=== PATIENT | male | born 1945 | race Two or more races ===

== ENCOUNTER → 2017-01-16 | Outpatient (CLI) | payer MEDICARE, OTHER ==
[2017-01-16 15:26] LABS: CH 31.7; CHCM 36.3; HCT 44.9 % (39.0-53.0); HDW 2.84; HGB 15.9 gm/dL (13.0-17.5); MCH 31.1 pg (25.0-35.0); MCHC 35.5 g/dL (31.0-37.0); MCV 87.7 fL (80.0-100.0); Mean Platelet Volume 7.4; RBC 5.12 m/uL (4.30-5.90); RDW 13.9 % (11.5-15.5); WBC 8.6 k/uL (3.8-10.6)
[2017-01-16 15:37] LABS: Anion Gap 12 mmol/L; Blood Urea Nitrogen 8 mg/dL (9-20); Carbon Dioxide 25 mmol/L (22-30); Chloride 103 mmol/L (98-107); Non-African American GFR(MDRD) >60 (>60 ml/min/1.73 sqM); Potassium 4.2 mmol/L (3.5-5.1); Sodium 140 mmol/L (137-145)
== END | disposition home or self-care (01) ==
LOC: LABPAT 15:16
PROVIDERS: ATTEND Internal Medicine Interventional Cardiology
DX: Z01.812 Encounter for preprocedural laboratory examination (principal); R07.9 Chest pain, unspecified
CPT/HCPCS: 36415; 80051; 82565; 84520; 85027

== ENCOUNTER → 2017-03-13 | Outpatient (CLI) | payer MEDICARE, OTHER ==
[2017-03-13 10:41] LABS: CH 31.4; CHCM 34.5; HDW 2.91; MCH 31.2 pg (25.0-35.0); MCHC 34.1 g/dL (31.0-37.0); MCV 91.6 fL (80.0-100.0); Mean Platelet Volume 7.4; RBC 5.14 m/uL (4.30-5.90); RDW 13.4 % (11.5-15.5); WBC 7.6 k/uL (3.8-10.6)
[2017-03-13 11:20] LABS: Anion Gap 10 mmol/L; Blood Urea Nitrogen 14 mg/dL (9-20); Carbon Dioxide 26 mmol/L (22-30); Chloride 104 mmol/L (98-107); Non-African American GFR(MDRD) >60 (>60 ml/min/1.73 sqM); Potassium 4.7 mmol/L (3.5-5.1); Sodium 140 mmol/L (137-145)
== END | disposition home or self-care (01) ==
LOC: LABPAT 10:18
PROVIDERS: ATTEND Internal Medicine Interventional Cardiology
DX: Z01.812 Encounter for preprocedural laboratory examination (principal); R94.30 Abnormal result of cardiovascular function study, unspecified
CPT/HCPCS: 36415; 80051; 82565; 84520; 85027

== ENCOUNTER → 2017-04-07 | Day surgery (SDC) | payer MEDICARE, OTHER ==
[2017-04-04 09:16] VITALS: BMI 30.5
[~2017-04-07] MED LIST: ALPRAZolam 0.25 MG TAB PO PRN; ASPIRIN 325 MG TAB PO ONE; HEPARIN SODIUM 1,000 UN/ML (10ML VL) IV ONE; HEPARIN SODIUM 1,000 UN/ML (10ML VL) ONE; IOHEXOL 350 MG/ML 125ML BOTTLE INJ ONE; LIDOCAINE 2% INJ 20 MG/ML (20 ML MDV) ONE; LIDOCAINE 2% INJ 20 MG/ML SQ ONE; MIDAZOLAM 2 MG/2 ML VIAL IVP ONE; MIDAZOLAM 2 MG/2 ML VIAL ONE; NITROGLYCERIN SL TABS 0.4 MG TAB SUBLINGUAL PRN; RX INFO: IV CONTRAST WAS GIVEN 1 EACH MISC MISCELLANE PRN; SODIUM CHLORIDE 0.9% 1,000 ML IV SCH; SODIUM CHLORIDE 0.9% 1,000 ML in EMPTY BAG 1 BAG IV ONE; VERAPAMIL 2.5 MG/ML 2 ML AMP ONE; VERAPAMIL SYRINGE (5 MG/10 ML) INTRAARTER ONE; diphenhydrAMINE 50 MG/ML 1 ML VIAL IVP ONE; diphenhydrAMINE 50 MG/ML 1 ML VIAL ONE
[2017-04-07 11:36] VITALS: TEMP 98
--- NOTE | 2017-04-07 11:40 | LTR ---
Date: April 07, 2017 Phong Buckley MD Re: Mango Cooknewtontorrey Dear Dr. Buckley: Mr. Mango Hansen underwent a heart catheterization today and that showed severe disease involving the LAD in the proximal portion as well as mid to distal portion. He will be scheduled to undergo a balloon angioplasty and stenting of the LAD. I want to thank you for allowing me to participate in his care. Sincerely, Mata Swanson MD MMVITALY / LORN: [id number] /
--- NOTE | 2017-04-07 11:49 | CC ---
CARDIAC CATHETERIZATION REPORT DATE OF SERVICE: 04/07/2017 PERFORMING PHYSICIAN: Mata Swanson MD, dishwashing machine operator. PROCEDURE PERFORMED: 1. Selective right and left coronary angiogram. 2. Left heart catheterization. 3. Left ventriculography. INDICATION: This is a pleasant 71-year-old gentleman with known hypertension and dyslipidemia who underwent recently a myocardial perfusion imaging stress test as well as stress echocardiogram and both showed anterior ischemia. In view of that, he was scheduled to undergo a heart catheterization. APPROACH: Right radial artery. COMPLICATION: None. LEVEL OF SEDATION: Moderate with sedation length of 23 minutes. PROCEDURE DESCRIPTION: After obtaining an informed consent, the patient was brought to the cardiac dental laboratory technician apprentice. The right radial artery was cannulated using micropuncture technique, the micropuncture wire passed easily. Then I placed a 6-[place] sheath in the right radial artery. Subsequently I gave the patient 2 mg of verapamil IA and 8000 units of heparin IV. After that, I did selective right and left coronary angiogram using JR4 and JL3.5 catheters. After that, I did left heart catheterization and left ventriculography using 5-[place] pigtail catheter. The procedure was completed without any complication. SELECTIVE CORONARY ANGIOGRAM: 1. The right coronary artery is a large caliber vessel and it is a nondominant vessel. It has intermediate lesion in the proximal portion. 2. The left main is angiographically normal. It bifurcates into left circumflex, ramus intermedius, and left anterior descending artery. 3. The left circumflex is a large caliber vessel and is a dominant vessel. The proximal circ appeared to be angiographically normal. The mid circ has mild luminal irregularity only. It gives rise into a large OM branch which appeared to have mild disease only and the circ distally is angiographically normal and bifurcates into PDA and PLV branches, both are angiographically normal. 4. The ramus intermedius is a moderate caliber vessel with intermediate disease in the proximal portion about 60%. 5. The left anterior descending artery; the proximal LAD appeared to have eccentric and calcified lesion, seems to be in the range of 70%. This is by the bifurcation off a small diagonal branch which appeared to have severe disease in the proximal portion. The mid LAD has another lesion, appeared to be in the range of 60%. The mid to distal LAD has a tight lesion seems to be in the range of 70%. HEMODYNAMIC: The left ventricular end-diastolic pressure was 12 mmHg. No gradient was identified across aortic valve. LEFT VENTRICULOGRAPHY: Left ventriculography was performed in the ALEMAN projection and using a power injection. The left ventricular systolic function is normal with EF of 50% with mild anterior wall hypokinesia. CONCLUSION: 1. Medium caliber, nondominant right coronary artery with mild disease only. 2. Normal left main coronary artery. 3. Mild nonobstructive disease involving the left circumflex. 4. Intermediate disease involving the ramus intermedius. 5. Severe disease involving the proximal and mid to distal LAD with calcified lesions. 6. Low normal left ventricular systolic function with ejection fraction of 50% and mild anterior wall hypokinesia. POSTPROCEDURE MANAGEMENT: The patient to be scheduled to undergo an atherectomy and balloon angioplasty and stenting of the LAD. MMODL / IJN: [id number] /
[2017-04-07 14:39] LABS: Magnesium 1.9 mg/dL (1.6-2.3); Potassium 4.2 mmol/L (3.5-5.1)
[2017-04-07 14:49] VITALS: BP 114/56; RESP 16
[2017-04-07 16:08] VITALS: PULSE 43
== END ==
LOC: CATHCVL 07:58
PROVIDERS: ATTEND Internal Medicine Interventional Cardiology
DX: I25.110 Atherosclerotic heart disease of native coronary artery with unstable angina pectoris (principal); I25.84 Coronary atherosclerosis due to calcified coronary lesion; I10 Essential (primary) hypertension; E78.5 Hyperlipidemia, unspecified; J45.909 Unspecified asthma, uncomplicated; Z79.82 Long term (current) use of aspirin; Z79.899 Other long term (current) drug therapy
CPT/HCPCS: 93458; 83735; 84132; 99152; 99153; C1894; J2001; J2250; J1200; J1644; Q9967

== ENCOUNTER → 2017-04-13 | Outpatient (CLI) | payer MEDICARE, OTHER | END | disposition home or self-care (01) | LOC: CPPFTMAIN 13:10 | PROVIDERS: ATTEND Internal Medicine Pulmonary Disease | DX: R06.02 Shortness of breath (principal) | CPT/HCPCS: 94060; 94726; 94729 ==

== ENCOUNTER → 2017-10-16 | Outpatient (CLI) | payer MEDICARE, OTHER ==
--- NOTE | 2017-10-16 09:03 | US ---
EXAMINATION TYPE: US gallbladder DATE OF EXAM: 10/16/2017 COMPARISON: NONE CLINICAL HISTORY: 72-year-old male R74.8 elevated liver enzymes. TECHNIQUE: Multiple sonographic images of the right upper quadrant are obtained. FINDINGS: Liver Length: 16.8 cm Gallbladder Wall: 0.2 cm CBD: 0.6 cm Right Kidney: 10.8 x 5.1 x 4.8 cm Pancreas: Suboptimal visualization of the pancreatic tail secondary to shadowing from bowel gas. Liver: Upper limits of normal in size but with normal homogeneous echotexture and no focal lesion. Gallbladder: No abnormal gallbladder distention, wall thickening, pericholecystic fluid, or shadowin g calculi. Evidence for sonographic Guzmán's sign: no CBD: Within normal limits for patient's age. Right Kidney: 1.2 x 0.9 x 0.9cm superior pole cortical cyst. No hydronephrosis. IMPRESSION: 1. Liver measures at the upper limits of normal in size but otherwise appears sonographically unremar kable. 2. Incidental small 1.2 cm cortical cyst in the right kidney.
== END | disposition home or self-care (01) ==
LOC: RADUSWWP 07:32
PROVIDERS: ATTEND Family Medicine
DX: R74.8 Abnormal levels of other serum enzymes (principal)
CPT/HCPCS: 76705

== ENCOUNTER → 2018-07-12 | Outpatient (CLI) | payer MEDICARE, OTHER ==
[2018-07-12 15:52] LABS: LDL Cholesterol,Calculated 50.8 mg/dL (0.0-131.0); VLDL Calculation 35.2 mg/dL (5.00-40.00)
== END | disposition home or self-care (01) ==
LOC: LABWHC1 07:54
PROVIDERS: ATTEND Nurse Practitioner Adult Health
DX: E78.5 Hyperlipidemia, unspecified (principal)
CPT/HCPCS: 36415; 80061

== ENCOUNTER → 2019-01-19 | Outpatient (CLI) | payer MEDICARE, OTHER ==
[2019-01-19 17:56] LABS: LDL Cholesterol,Calculated 39.6 mg/dL (0.0-131.0); VLDL Calculation 16.4 mg/dL (5.00-40.00)
== END | disposition home or self-care (01) ==
LOC: LABWHC1 10:28
PROVIDERS: ATTEND Internal Medicine Interventional Cardiology
DX: E78.2 Mixed hyperlipidemia (principal)
CPT/HCPCS: 36415; 80061; 84450; 84460

== ENCOUNTER 2019-02-05 06:53 | Day surgery (SDC) | payer MEDICARE, OTHER ==
[~2019-02-05 06:53] MED LIST changes: -ALPRAZolam 0.25 MG TAB PO PRN; -ASPIRIN 325 MG TAB PO ONE; -HEPARIN SODIUM 1,000 UN/ML (10ML VL) IV ONE; -HEPARIN SODIUM 1,000 UN/ML (10ML VL) ONE; -IOHEXOL 350 MG/ML 125ML BOTTLE INJ ONE; +LACTATED RINGERS 1,000 ML IV SCH; -LIDOCAINE 2% INJ 20 MG/ML (20 ML MDV) ONE; -LIDOCAINE 2% INJ 20 MG/ML SQ ONE; -MIDAZOLAM 2 MG/2 ML VIAL IVP ONE; -MIDAZOLAM 2 MG/2 ML VIAL ONE; -NITROGLYCERIN SL TABS 0.4 MG TAB SUBLINGUAL PRN; -RX INFO: IV CONTRAST WAS GIVEN 1 EACH MISC MISCELLANE PRN; -SODIUM CHLORIDE 0.9% 1,000 ML IV SCH; -SODIUM CHLORIDE 0.9% 1,000 ML in EMPTY BAG 1 BAG IV ONE; -VERAPAMIL 2.5 MG/ML 2 ML AMP ONE; -VERAPAMIL SYRINGE (5 MG/10 ML) INTRAARTER ONE; -diphenhydrAMINE 50 MG/ML 1 ML VIAL IVP ONE; -diphenhydrAMINE 50 MG/ML 1 ML VIAL ONE
[2019-02-05] MEDS ORDERED: LACTATED RINGERS 1,000 ML IV ONE (07:00)
[2019-02-05 07:14] VITALS: TEMP 97.6
[2019-02-05 07:20] LABS: Glucose,Whole Blood 138 mg/dL (75-99)
[2019-02-05] MEDS ORDERED: LIDOCAINE 1% INJ 10MG/ML (20 ML MDV) ONE (07:39)
[2019-02-05] MEDS ORDERED: PROPOFOL 10 MG/ML 20 ML VIAL IV ONE (07:39)
[2019-02-05] MEDS ORDERED: ePHEDrine SULFATE/0.9% NACL/PF 50 MG/5 ML SYRINGE IV ONE (07:39)
[2019-02-05] MEDS ORDERED: GLYCOPYRROLATE 0.2 MG/ML 2 ML VIAL ONE (07:39)
--- NOTE | 2019-02-05 08:01 | P.GSHP ---
History of Present Illness H&P Date: 02/05/19 Chief Complaint: Screening colonoscopy This is a 73-year-old male referred from Dr. Buckley. Patient presents today for screening colonoscopy. Past Medical History Past Medical History: Asthma, Diabetes Mellitus, Hyperlipidemia, Hypertension Additional Past Medical History / Comment(s): Allergies, diet controlled Diabetes. History of Any Multi-Drug Resistant Organisms: None Reported Additional Past Surgical History / Comment(s): Bilateral cataract surgery. Past Anesthesia/Blood Transfusion Reactions: No Reported Reaction Past Psychological History: No Psychological Hx Reported Smoking Status: Never smoker Past Alcohol Use History: None Reported Past Drug Use History: None Reported - Past Family History Mother Family Medical History: No Reported History Medications and Allergies Home Medications Medication Instructions Recorded Confirmed Type Albuterol Inhaler [Ventolin Hfa 1 - 2 puff INHALATION Q6H PRN 04/04/17 02/05/19 History Inhaler] Aspirin 81 mg PO DAILY 04/04/17 02/04/19 History Cholecalciferol (Vitamin D3) 4,000 unit PO DAILY 04/04/17 02/04/19 History [Vitamin D3] Fluticasone/Vilanterol [Breo 1 inhalation PO DAILY PRN 04/04/17 02/05/19 History Ellipta 100-25 Mcg Inhaler] Atorvastatin [Lipitor] 80 mg PO HS 02/04/19 02/05/19 History Benazepril [Lotensin] 10 mg PO BID 02/04/19 02/05/19 History Allergies Allergy/AdvReac Type Severity Reaction Status Date / Time No Known Allergies Allergy Verified 02/05/19 07:14 Surgical - Exam Vital Signs Temp Pulse Resp BP Pulse Ox 97.6 F 62 14 142/65 97 02/05/19 07:11 02/05/19 07:11 02/05/19 07:11 02/05/19 07:11 02/05/19 07:11 - General well developed, well nourished, no distress - Eyes PERRL - ENT normal pinna - Neck no masses - Respiratory normal expansion - Cardiovascular Rhythm: regular - Abdomen Abdomen: soft, non tender Results - Labs Abnormal Lab Results - Last 24 Hours (Table) 02/05/19 Range/Units 07:16 POC Glucose (mg/dL) 138 H (75-99) mg/dL Assessment and Plan Assessment: We'll perform screening colonoscopy.
--- NOTE | 2019-02-05 08:08 | P.OP ---
Date of Procedure: 02/05/19 Preoperative Diagnosis: Screening colonoscopy Postoperative Diagnosis: Normal colon Procedure(s) Performed: Colonoscopy Anesthesia: MAC Surgeon: Rick Srivastava Pathology: none sent Condition: stable Disposition: PACU Description of Procedure: PROCEDURE: The patient was placed on the endoscopy table in the lateral position. Digital rectal examination was performed which revealed no abnormalities. The prostate was symmetrical without nodules. Flexible colonoscope was then placed in the patient's anus and passed throughout the entire colon. The ileocecal valve was visualized. The cecum, ascending, transverse, descending and sigmoid colon were normal. The rectum was normal as well. There were no masses, polyps or diverticula noted in the entire colon. SUMMARY OF FINDINGS: Normal colonoscopy.
[2019-02-05 08:24] VITALS: RESP 16
[2019-02-05 08:51] VITALS: BP 125/67; PULSE 53
== END 2019-02-05 10:11 | disposition home or self-care (01) ==
LOC: ORWHC2ENDO 06:53
PROVIDERS: ATTEND Surgery
DX: Z12.11 Encounter for screening for malignant neoplasm of colon (principal); J45.909 Unspecified asthma, uncomplicated; E11.9 Type 2 diabetes mellitus without complications; E78.5 Hyperlipidemia, unspecified; I10 Essential (primary) hypertension; Z79.82 Long term (current) use of aspirin; Z79.899 Other long term (current) drug therapy; Z79.51 Long term (current) use of inhaled steroids
CPT/HCPCS: J2001; J2704; G0121

== ENCOUNTER → 2019-03-05 | Outpatient (CLI) | payer MEDICARE, OTHER | END | disposition home or self-care (01) | LOC: CPPFTMAIN 14:02 | PROVIDERS: ATTEND Internal Medicine Pulmonary Disease | DX: J45.50 Severe persistent asthma, uncomplicated (principal) | CPT/HCPCS: 94060; 94726; 94729 ==

== ENCOUNTER → 2020-04-13 | Outpatient (CLI) | payer MEDICARE, OTHER ==
[2020-04-13 15:24] LABS: Basophils % (A) 0 %; Eosinophils # (A) 0.3 k/uL (0-0.7); Eosinophils % (A) 4 %; HCT 43.2 % (39.0-53.0); HGB 14.4 gm/dL (13.0-17.5); Lymphocytes # (A) 2.4 k/uL (1.0-4.8); Lymphocytes % (A) 28 %; MCHC 33.3 g/dL (31.0-37.0); MCV 90.1 fL (80.0-100.0); Monocytes # (A) 0.5 k/uL (0-1.0); Monocytes % (A) 6 %; Neutrophils # (A) 5.2 k/uL (1.3-7.7); Neutrophils % (A) 60 %; Platelet Count 171 k/uL (150-450); RDW 13.1 % (11.5-15.5); WBC 8.7 k/uL (3.8-10.6)
[2020-04-13 18:52] LABS: T4, Free (Free Thyroxine) 1.1 ng/dL (0.80-1.80)
[2020-04-13 19:01] LABS: African American GFR (CKD) 86.8 (60.0-200.0); Albumin 4.3 g/dL (3.80-4.90); Albumin/Globulin Ratio 2.26 (1.60-3.17); Anion Gap 7.9 mmol/L (4.00-12.00); Calcium 9.2 mg/dL (8.7-10.3); Carbon Dioxide 27.1 mmol/L (21.6-31.8); Chol/HDL Ratio 2.57; Globulin 1.9 g/dL (1.6-3.3); LDL Cholesterol,Calculated 38.6 mg/dL (0.0-131.0); Non-African American GFR(CKD) 74.9 (60.0-200.0); Prostate Specific Antigen 1.1 ng/mL (0.0-6.5); Total Protein 6.2 g/dL (6.2-8.2); VLDL Calculation 19.4 mg/dL (5.00-40.00)
== END | disposition home or self-care (01) ==
LOC: LABWHC1 14:15
PROVIDERS: ATTEND Family Medicine
DX: Z00.00 Encounter for general adult medical examination without abnormal findings (principal); E55.9 Vitamin D deficiency, unspecified; E78.5 Hyperlipidemia, unspecified; R53.83 Other fatigue; Z13.220 Encounter for screening for lipoid disorders; N40.0 Benign prostatic hyperplasia without lower urinary tract symptoms
CPT/HCPCS: 36415; 80053; 80061; 82306; 84153; 84439; 84443; 85025

== ENCOUNTER → 2021-05-11 | Outpatient (CLI) | payer MEDICARE, OTHER ==
[2021-05-11 18:53] LABS: Basophils # (A) 0.04 X 10*3/uL (0.00-0.10); Basophils % (A) 0.5 %; Eosinophils # (A) 0.29 X 10*3/uL (0.04-0.35); Eosinophils % (A) 3.4 %; HCT 44.3 % (39.6-50.0); HGB 15.6 g/dL (13.0-17.0); Lymphocytes # (A) 2.19 X 10*3/uL (0.90-5.00); Lymphocytes % (A) 25.9 %; MCH 32.1 pg (27.0-32.0); MCHC 35.2 g/dL (32.0-37.0); MCV 91.2 fL (80.0-97.0); Mean Platelet Volume 11.2 fL (9.5-12.2); Monocytes # (A) 0.81 X 10*3/uL (0.20-1.00); Monocytes % (A) 9.6 %; Neutrophils # (A) 5.08 X 10*3/uL (1.80-7.70); Neutrophils % (A) 60.2 %; Platelet Count 194 X 10*3/uL (140-440); RBC 4.86 X 10*6/uL (4.40-5.60); RDW 12.7 % (11.5-14.5); WBC 8.44 X 10*3/uL (4.50-10.00)
[2021-05-11 19:51] LABS: T4, Free (Free Thyroxine) 1.24 ng/dL (0.800-1.800)
== END | disposition home or self-care (01) ==
LOC: LABWHC1 13:00
PROVIDERS: ATTEND Family Medicine
DX: Z00.00 Encounter for general adult medical examination without abnormal findings (principal); Z13.220 Encounter for screening for lipoid disorders; E55.9 Vitamin D deficiency, unspecified; E78.5 Hyperlipidemia, unspecified; R53.83 Other fatigue
CPT/HCPCS: 36415; 82306; 84439; 84443; 85025

== ENCOUNTER → 2021-05-14 | Outpatient (CLI) | payer MEDICARE, OTHER ==
[2021-05-14 15:20] LABS: African American GFR (CKD) 89.6 (60.0-200.0); Albumin 4.3 g/dL (3.8-4.9); Albumin/Globulin Ratio 1.95 (1.60-3.17); Anion Gap 11.2 mmol/L (4.00-12.00); BUN/Creat Ratio 15.81 Ratio (12.00-20.00); Blood Urea Nitrogen 15.3 mg/dL (9.0-27.0); Calcium 8.9 mg/dL (8.7-10.3); Chol/HDL Ratio 2.25 Ratio; Globulin 2.2 g/dL (1.6-3.3); HDL Cholesterol 37.1 mg/dL (40.00-60.00); Non-African American GFR(CKD) 77.3 (60.0-200.0); Potassium 4.3 mmol/L (3.5-5.5); Total Protein 6.5 g/dL (6.2-8.2); Triglycerides 57.4 mg/dL (0.00-149.00); VLDL Calculation 11.48 mg/dL (5.00-40.00)
== END | disposition home or self-care (01) ==
LOC: LABWHC1 09:35
PROVIDERS: ATTEND Family Medicine
DX: Z00.00 Encounter for general adult medical examination without abnormal findings (principal); Z13.220 Encounter for screening for lipoid disorders; E55.9 Vitamin D deficiency, unspecified; E78.5 Hyperlipidemia, unspecified; R53.83 Other fatigue
CPT/HCPCS: 36415; 80053; 80061

== ENCOUNTER → 2022-05-20 | Outpatient (CLI) | payer MEDICARE, OTHER ==
[2022-05-20 17:35] LABS: Basophils # (A) 0.04 X 10*3/uL (0.00-0.10); Basophils % (A) 0.5 %; Eosinophils # (A) 1.19 X 10*3/uL (0.04-0.35); Eosinophils % (A) 14.5 %; HCT 45.7 % (39.6-50.0); HGB 15.1 g/dL (13.0-17.0); Immature Grans, Automated 0.2 %; Lymphocytes # (A) 2.55 X 10*3/uL (0.90-5.00); MCH 30.2 pg (27.0-32.0); MCV 91.4 fL (80.0-97.0); Mean Platelet Volume 11.2 fL (9.5-12.2); Monocytes # (A) 0.73 X 10*3/uL (0.20-1.00); Monocytes % (A) 8.9 %; NRBC Per 100 WBC 0 /100 WBCS (0.0-0.0); Neutrophils % (A) 44.9 %; Platelet Count 192 X 10*3/uL (140-440); WBC 8.23 X 10*3/uL (4.50-10.00)
[2022-05-20 18:17] LABS: Chol/HDL Ratio 2.19 Ratio; LDL Cholesterol,Calculated 29.6 mg/dL (0.0-131.0); VLDL Calculation 15.52 mg/dL (5.00-40.00)
== END | disposition home or self-care (01) ==
LOC: LABWHC1 10:06
PROVIDERS: ATTEND Family Medicine
DX: Z00.00 Encounter for general adult medical examination without abnormal findings (principal); Z13.220 Encounter for screening for lipoid disorders; E11.65 Type 2 diabetes mellitus with hyperglycemia; E55.9 Vitamin D deficiency, unspecified; E78.5 Hyperlipidemia, unspecified; R53.83 Other fatigue
CPT/HCPCS: 36415; 80061; 82043; 82306; 82570; 84439; 84443; 85025

== ENCOUNTER → 2022-08-17 | Outpatient (CLI) | payer MEDICARE, OTHER ==
[2022-08-17 21:29] LABS: ALT 25 U/L (10-49); AST 23 U/L (14-35); Chol/HDL Ratio 2.69 Ratio; LDL Cholesterol,Calculated 37.2 mg/dL (0.0-131.0)
== END | disposition home or self-care (01) ==
LOC: LABWHC1 11:27
PROVIDERS: ATTEND Internal Medicine Interventional Cardiology
DX: E78.2 Mixed hyperlipidemia (principal)
CPT/HCPCS: 36415; 80061; 84450; 84460

== ENCOUNTER → 2023-05-08 | Outpatient (CLI) | payer MEDICARE, OTHER ==
[2023-05-08 15:23] LABS: Basophils % (A) 0 %; Eosinophils # (A) 0.7 k/uL (0-0.7); Eosinophils % (A) 7 %; HGB 14.8 gm/dL (13.0-17.5); Lymphocytes # (A) 2.6 k/uL (1.0-4.8); Lymphocytes % (A) 30 %; MCH 31.7 pg (25.0-35.0); MCHC 35.1 g/dL (31.0-37.0); MCV 90.1 fL (80.0-100.0); Mean Platelet Volume 8.2; Monocytes # (A) 0.5 k/uL (0-1.0); Monocytes % (A) 6 %; Neutrophils # (A) 4.8 k/uL (1.3-7.7); Neutrophils % (A) 55 %; Platelet Count 168 k/uL (150-450); RBC 4.66 m/uL (4.30-5.90); RDW 12.7 % (11.5-15.5); WBC 8.9 k/uL (3.8-10.6)
[2023-05-08 15:34] LABS: Total Eosinophil Count 646 #EOS/uL (150-300)
== END | disposition home or self-care (01) ==
LOC: LABWHC1 13:46
PROVIDERS: ATTEND Internal Medicine
DX: J45.40 Moderate persistent asthma, uncomplicated (principal)
CPT/HCPCS: 36415; 82785; 85008; 85025

== ENCOUNTER → 2023-09-27 | Outpatient (CLI) | payer MEDICARE, OTHER ==
--- NOTE | 2023-09-28 15:43 | US ---
EXAMINATION TYPE: US kidneys/renal and bladder DATE OF EXAM: 09/27/2023 COMPARISON: NONE CLINICAL INDICATION: Male, 78 years old with history of R32 UNSPECIFIED URINARY INCONTINENCE; Unspeci fied urinary incontinence. EXAM MEASUREMENTS: Right Kidney: 11.2 x 5.9 x 5.0 cm Left Kidney: 11.8 x 5.6 x 5.1 cm Post Void Residual Volume: 16.4 mL Right Kidney: Anechoic area seen at mid: 1.8 x 1.8 x 1.5 cm. Left Kidney: Anechoic area seen medially: 1.8 x 1.9 x 1.6 cm. Bladder: Appears wnl. Prostate gland enlargement 4.2 cm wide. Bilateral Jets seen: Yes Normal Post Void Residual: Yes IMPRESSION: 1. A couple benign renal cortical cysts in the kidneys measuring up to 1.9 cm. No hydronephrosis on e ither side. 2. Mild prostatomegaly of 4.2 cm wide.
== END | disposition home or self-care (01) ==
LOC: RADUSWWP 12:43
PROVIDERS: ATTEND Family Medicine
DX: N28.1 Cyst of kidney, acquired (principal); N40.0 Benign prostatic hyperplasia without lower urinary tract symptoms; R32 Unspecified urinary incontinence
CPT/HCPCS: 76770

== ENCOUNTER → 2024-05-03 | Outpatient (CLI) | payer MEDICARE, OTHER ==
[2024-05-03 15:32] LABS: ALT 30 U/L (10-49); AST 23 U/L (14-35); Chol/HDL Ratio 2.52 Ratio; LDL Cholesterol,Calculated 37.7 mg/dL (0.0-131.0)
== END | disposition home or self-care (01) ==
LOC: LABWHC1 11:07
PROVIDERS: ATTEND Internal Medicine Interventional Cardiology
DX: E78.2 Mixed hyperlipidemia (principal)
CPT/HCPCS: 36415; 80061; 84450; 84460

== ENCOUNTER → 2024-07-15 | Outpatient (CLI) | payer MEDICARE, OTHER ==
--- NOTE | 2024-07-15 23:58 | US ---
EXAMINATION TYPE: US renals and bladder DATE OF EXAM: 07/15/2024 COMPARISON: US 08/29/2023 CLINICAL INDICATION: Male, 78 years old with history of R35.0 FREQUENCY OF MICTURITION; Pt states ur inary urgency TECHNIQUE: Grayscale imaging of the bilateral kidneys and urinary bladder: FINDINGS: EXAM MEASUREMENTS: Right Kidney: 10.5 x 5.6 x 5.3 cm Left Kidney: 11.0 x 5.4 x 5.4 cm Post Void Residual Volume: 32 mL Right Kidney: No evidence of hydro, exophytic cystic lesion mid= 1.3 x 1.5 x 1.4 cm Left Kidney: No evidence of hydro, exophytic cystic lesion mid= 1.5 x 1.3 x 1.2 cm Bladder: wnl Bilateral Jets seen: Yes Normal Post Void Residual: Yes IMPRESSION: 1. Bilateral renal cysts [facility], Workstation: 3, 07/15/2024 11:55 PM
== END | disposition home or self-care (01) ==
LOC: RADUSWWP 15:07
PROVIDERS: ATTEND Family Medicine
DX: R35.0 Frequency of micturition (principal); Z78.9 Other specified health status; N28.1 Cyst of kidney, acquired
CPT/HCPCS: 76770

== ENCOUNTER → 2024-07-24 | Outpatient (CLI) | payer MEDICARE, OTHER ==
[2024-07-24 12:46] LABS: African American GFR (CKD) >90 (>60 ml/min/1.73 sqM); Blood Urea Nitrogen 17 mg/dL (9-20); Non-African American GFR(CKD) 78 (>60 ml/min/1.73 sqM)
--- NOTE | 2024-07-24 14:27 | CT ---
EXAMINATION TYPE: CT angio neck DATE OF EXAM: 07/24/2024 COMPARISON: None CLINICAL INDICATION: Male, 78 years old with history of I65.139 OCCLUSION AND STENOSIS; PHH, carotid stenosis TECHNIQUE: CTA scan of the head and neck is performed with IV Contrast, patient injected with 75ml m L of Isovue 370, axial images are obtained, coronal and sagittal reformatted images are reviewed. 3D reconstructed images are created on an independent workstation and reviewed. 3-D postprocessing was p erformed. CT DLP: 380.[address] CTDI: mGy Automated exposure control for dose reduction was used. NASCET criteria was used in interpretation of this exam? FINDINGS: The brachiocephalic origins are widely patent and no significant stenosis. There is no significant stenosis of the common or internal carotid arteries within the neck. There is mild atherosclerotic plaque in the left carotid bifurcation. There is no stenosis of the vertebral arteries. IMPRESSION: No significant carotid stenosis as described above. NASCET criteria was used in interpretation of this exam? [facility], Workstation: [id number] 07/24/2024 2:25 PM
== END | disposition home or self-care (01) ==
LOC: RADCTMAIN 11:58
PROVIDERS: ATTEND Internal Medicine Interventional Cardiology
DX: I65.29 Occlusion and stenosis of unspecified carotid artery (principal)
CPT/HCPCS: 82565; 84520; 70498; 36415; Q9967